=== PATIENT | female | born 1980 | race African-American/Black ===

== ENCOUNTER 2017-04-16 16:53 | Outpatient (CLI) | payer MEDICAID, OTHER ==
[~2017-04-16] VITALS: Ht 157.5 cm; Wt 72.5 kg
[~2017-04-16 16:53] MED LIST: FER325 PO; MULT-552 PO
[2017-04-16 16:58] VITALS: Ht 157.5 cm; Wt 72.5 kg
[2017-04-16 17:03] VITALS: BP 121/69; PULSE 85; RESP 19
--- NOTE | 2017-04-16 17:39 | RADRPT ---
PROCEDURE: Obstetrical ultrasound for biophysical profile CLINICAL INDICATION: Biophysical profile. . TECHNIQUE: Obstetrical ultrasound of the uterus for biophysical profile. Transabdominal views are obtained. COMPARISON: 07/01/2014 FINDINGS: Single intrauterine gestation. Presentation: Cephalic. Placenta: Anterior. No evidence of placental abruption. No evidence of placenta previa. breathing movement = 2/2 tone = 2/2 motion = 2/2 SHAYNE = 2/2 SHAYNE = 8.6cm on individual images, computed total on the ultrasound machine is incorrect and shows 5. 2 cm. heart rate: 161 beats per minute IMPRESSION: Single intrauterine gestation. Biophysical profile 02/28 RPTAT: AADD .Gurdeep Smith MD, MD Date Time Electronically viewed and signed by .Gurdeep Smith MD, on 04/16/2017 17:39 .B/
[2017-04-16] MEDS ORDERED: TERBUTALINE 1 MG/ML INJ SC ONE (20:00)
[2017-04-16] MEDS ORDERED: TERBUTALINE 1 MG/ML INJ SC PRN (20:30)
--- NOTE | 2017-04-16 21:48 | PN ---
Triage Information Date/Time Apr 16, 2017 Reason for visit: Oligohydramnios Weeks of Gestation 38w 2d /Para 2/1 Diabetes: none Hypertention: none Additional information Previous , scheduled for a repeat 04/21 at 0730. PMHx: none. PSHx: C/S x 1 only. NKDA. Objective Vital Signs Date Time Temp Pulse Resp B/P Pulse Ox O2 Delivery O2 Flow Rate FiO2 04/16/17 17:03 98.4 85 19 121/69 99 Heart Rate: 130's Heart Rate Comments Accels to 160 bpm. No decels. Contractions: 6-10 Minutes Apart Exam Closed/thick/high. Results/Medications Medications Current Medications Terbutaline Sulfate (Brethine) 0.25 mg ONCE PRN SC IF CONTRACTIONS PERSISTS Last administered on 04/16/17t 20:33; Admin Dose 0.25 MG; Start 04/16/17 at 20: 30; Stop 04/16/17 at 23:45 Imaging Results BPP 8/8 with a SHAYNE 8.6 cm. VTX. Disposition: Discharge Assessment/Plan A: IUP at 38w 2d. Previous for a scheduled repeat. Decreased movement. False labor. P: Gave pt p.o. hydration and 2 doses of terbutaline and the contractions easily stopped. The pt did not want to have her today as her mother is coming in 4 days and she has no one to watch her other child if she has the baby now. Labor precautions reviewed. BRUCE LOOMIS MD Apr 16, 2017 21:48
--- NOTE | 2017-04-16 23:16 | TRIAGE ---
OB Triage Datetime Report Generated by CPN: 04/16/2017 23:16 Datetime: 04/16/2017 21:35 Stage of : OB Triage Maternal Assessment Level of Consciousness: Fully Conscious Labor Evaluation Frequency: X3 Monitor Mode: External Duration (sec)2399: 50-70 Quality: Mild Pattern: Normal: <= 5 Contractions in 10 Minutes Resting Tone Gays: Relaxed Heart Rate FHR Baseline Rate: 135 Monitor Mode: External US Variability: Moderate 6-25 bpm Accelerations: 15X15 Decelerations: None Category: Category I Pain Presence: None/Denies Pain Goal: 3 Membrane Status: Intact Datetime: 04/16/2017 21:00 Stage of : OB Triage Maternal Assessment Level of Consciousness: Fully Conscious Labor Evaluation Frequency: IRREG Monitor Mode: External Duration (sec)2399: 50-70 Quality: Mild Pattern: Normal: <= 5 Contractions in 10 Minutes Resting Tone Gays: Relaxed Heart Rate FHR Baseline Rate: 135 Monitor Mode: External US Variability: Moderate 6-25 bpm Accelerations: 15X15 Decelerations: None Category: Category I Pain Presence: None/Denies Pain Goal: 3 Membrane Status: Intact Datetime: 04/16/2017 20:31 Stage of : OB Triage Datetime: 04/16/2017 20:00 Stage of : OB Triage Maternal Assessment Level of Consciousness: Fully Conscious Labor Evaluation Frequency: 2-6 Monitor Mode: External Duration (sec)2399: 50-60 Quality: Mild Pattern: Normal: <= 5 Contractions in 10 Minutes Resting Tone Gays: Relaxed Heart Rate FHR Baseline Rate: 135 Monitor Mode: External US Variability: Moderate 6-25 bpm Accelerations: 15X15 Decelerations: None Category: Category I Pain Assessment Pain Scale: 1 Pain Presence: Intermittent Pain Type: Cramping Pain Location: Abdomen Pain Goal: 3 Pain Relief Measures: Comfort Measures Membrane Status: Intact Datetime: 04/16/2017 19:32 Vaginal Exam Dilatation (cms): 0.0 Effacement (%): 0 Station: -3 Exam By: SKY Vaginal Bleeding: None Cervix, Consistency: Moderate Cervix, Position: Posterior Datetime: 04/16/2017 19:00 Stage of : OB Triage Maternal Assessment Level of Consciousness: Fully Conscious DTR's/Clonus: DTRs 1+ Headache: Denies Breath Sounds, Left: Clear and Equal Breath Sounds, Right: Clear and Equal Nausea/Vomiting: Denies RUQ Epigastric Pain: Denies Labor Evaluation Frequency: 2-6 Monitor Mode: External Duration (sec)2399: 50-60 Quality: Mild Pattern: Normal: <= 5 Contractions in 10 Minutes Resting Tone Gays: Relaxed Heart Rate FHR Baseline Rate: 150 Monitor Mode: External US Variability: Moderate 6-25 bpm Accelerations: 15X15 Decelerations: None Category: Category I Pain Assessment Pain Scale: 0 Pain Presence: None/Denies Pain Type: N/A Pain Goal: 3 Membrane Status: Intact Datetime: 04/16/2017 18:00 Maternal Assessment Level of Consciousness: Fully Conscious DTR's/Clonus: DTRs 1+ Headache: Denies Breath Sounds, Left: Clear and Equal Breath Sounds, Right: Clear and Equal Nausea/Vomiting: Denies RUQ Epigastric Pain: Denies Labor Evaluation Frequency: OCC Monitor Mode: External Duration (sec)2399: 50-60 Quality: Mild Pattern: Normal: <= 5 Contractions in 10 Minutes Resting Tone Gays: Relaxed Heart Rate FHR Baseline Rate: 150 Monitor Mode: External US Variability: Moderate 6-25 bpm Accelerations: 15X15 Decelerations: None Category: Category I Pain Assessment Pain Scale: 0 Pain Presence: None/Denies Pain Type: N/A Pain Goal: 3 Membrane Status: Intact Datetime: 04/16/2017 17:19 Maternal Assessment Level of Consciousness: Fully Conscious DTR's/Clonus: DTRs 1+ Headache: Denies Blurred Vision: No Respiratory Effort: Unlabored Breath Sounds, Left: Clear and Equal Breath Sounds, Right: Clear and Equal Nausea/Vomiting: Denies RUQ Epigastric Pain: Denies Facial Edema: None Labor Evaluation Frequency: X3 Monitor Mode: External Duration (sec)2399: 50-60 Quality: Mild Pattern: Normal: <= 5 Contractions in 10 Minutes Resting Tone Gays: Relaxed Heart Rate FHR Baseline Rate: 150 Monitor Mode: External US Variability: Moderate 6-25 bpm Accelerations: 15X15 Decelerations: None Category: Category I Pain Assessment Pain Scale: 0 Pain Presence: None/Denies Pain Type: N/A Pain Goal: 3 Membrane Status: Intact Datetime: 04/16/2017 17:01 Monitor Mode: External US Datetime: 04/16/2017 16:58 Assessment Type: Triage Maternal Assessment Level of Consciousness: Fully Conscious DTR's/Clonus: DTRs 2+; No Clonus Headache: Denies Blurred Vision: No Respiratory Effort: Unlabored; Regular Rhythm; Equal Expansion Breath Sounds, Left: Clear and Equal Breath Sounds, Right: Clear and Equal Nausea/Vomiting: Denies RUQ Epigastric Pain: Denies Lower Extremities Edema: None Degree: None Upper Extremities Edema: None Degree: None Facial Edema: None Fall Risk Assessment History of Falling: (0) No Secondary Diagnosis: (0) No Ambulatory Aid: (0) Bedrest/Nurse Assist IV Therapy: (0) No Gait: (0) Normal/Bedrest/Immobile Mental Status: (0) Oriented to Own Ability Fall Score: 0 Fall Risk Score Definition: No Risk: No action required Datetime: 04/16/2017 16:57 EGA: 38.2 Datetime: 04/16/2017 16:42 Time of Arrival: 04/16/2017 16:42 Arrived By: Ambulatory Arrived From: Home Chief Complaint: PT CAME IN FROM [facility] OFFICE TO DO NST AND BPP FOR DFM Movement: Present Contractions: Denies/Absent Rupture of Membranes: Denies Vaginal Discharge: Denies Recent Sexual Intercouse: Denies Abdominal Trauma: Not Applicable Additional Patient Complaints: NONE Provider Notified: EBONIE Initial Plan: NST AND BPP
--- NOTE | 2017-04-17 22:24 | PREOPHP ---
DATE OF ADMISSION: 04/16/2017 This patient is coming on for a repeat section. HISTORY OF PRESENT ILLNESS: This is a 36-year-old female, 2, para 1, with an EDC of 04/28/2017. This patient is coming for a repeat section. She had a previous section in 2014, and she had care with ut in the office since 30 weeks of her . Release of records from other office was obtained. She was diagnosed with GBS- positive. Otherwise, the patient had no other complications, except for mild anemia. There was a question about the fetus having a need for a echocardiogram, due to a possibility of ductus arteriosus being patent, due to an ultrasound done by perinatologist. Otherwise, everything else was normal. The baby was a normal-size male. The factors of looking at that area of the heart was a little bit difficult with the ultrasound, and the sustainability specialist advised to have the echocardiogram done after . The patient had the rest of the care at [facility], which was without any complications. She had all her care without complications since early , and her EDC was April 28. FAMILY HISTORY: Unremarkable, with no pertinent findings. ALLERGIES: SHE IS NOT ALLERGIC TO ANY MEDICATION. PHYSICAL EXAMINATION: VITAL SIGNS: The patient weighed 154 at the beginning of the . The blood pressure is 100/80. She is actually 159 pounds. HEAD AND NECK: Normal. CHEST: Clear. HEART: Normal sinus rhythm. LUNGS: Clear. BREASTS: Soft, nontender no masses. ABDOMEN: Soft. Uterus at term. heart tones are normal. CERVIX: Closed, long and posterior. EXTREMITIES: Normal, with normal pulses, normal reflexes, no edema. DIAGNOSES: 1. Term . 2. Previous section. PLAN: She is undergoing a repeat low-segment transverse section. Dictated By: Misty Haines MD /jose/lorene /Document#: [id number]
== END 2017-04-16 21:45 | disposition home or self-care (01) ==
LOC: L-D 16:53 → OBT 16:53
PROVIDERS: ATTEND Obstetrics & Gynecology
DX: O36.8130 Decreased fetal movements, third trimester, not applicable or unspecified (principal); O47.1 False labor at or after 37 completed weeks of gestation; Z3A.38 38 weeks gestation of pregnancy
CPT/HCPCS: 76818; 96372; G0463; J3105

== ENCOUNTER 2017-04-21 05:24 | Inpatient (IN) | payer OTHER ==
--- NOTE | 2017-04-17 22:24 | PREOPHP ---
DATE OF ADMISSION: 04/16/2017 This patient is coming on for a repeat section. HISTORY OF PRESENT ILLNESS: This is a 36-year-old female, 2, para 1, with an EDC of 04/28/2017. This patient is coming for a repeat section. She had a previous section in 2014, and she had care with ct in the office since 30 weeks of her . Release of records from other office was obtained. She was diagnosed with GBS- positive. Otherwise, the patient had no other complications, except for mild anemia. There was a question about the fetus having a need for a echocardiogram, due to a possibility of ductus arteriosus being patent, due to an ultrasound done by perinatologist. Otherwise, everything else was normal. The baby was a normal-size male. The factors of looking at that area of the heart was a little bit difficult with the ultrasound, and the shop teacher advised to have the echocardiogram done after . The patient had the rest of the care at [facility], which was without any complications. She had all her care without complications since early , and her EDC was April 28. FAMILY HISTORY: Unremarkable, with no pertinent findings. ALLERGIES: SHE IS NOT ALLERGIC TO ANY MEDICATION. PHYSICAL EXAMINATION: VITAL SIGNS: The patient weighed 154 at the beginning of the . The blood pressure is 100/80. She is actually 159 pounds. HEAD AND NECK: Normal. CHEST: Clear. HEART: Normal sinus rhythm. LUNGS: Clear. BREASTS: Soft, nontender no masses. ABDOMEN: Soft. Uterus at term. heart tones are normal. CERVIX: Closed, long and posterior. EXTREMITIES: Normal, with normal pulses, normal reflexes, no edema. DIAGNOSES: 1. Term . 2. Previous section. PLAN: She is undergoing a repeat low-segment transverse section. Dictated By: Misty Haines MD /jose/lorene /Document#: [id number]
[~2017-04-21] VITALS: Ht 157.5 cm; Wt 72.3 kg
[2017-04-21 05:50] VITALS: Ht 157.5 cm; Wt 72.3 kg
[2017-04-21 05:53] VITALS: BP 120/76; PULSE 70; RESP 18
[2017-04-21] MEDS ORDERED: METHYLERGONOVINE 0.2 MG INJ IM PRN ×2 (06:00→10:00)
[2017-04-21] MEDS ORDERED: OXYTOCIN 30 UNITS/LR 500 ML IV PRN ×2 (06:00→10:00)
[2017-04-21] MEDS ORDERED: CARBOPROST 250 MCG INJ IM PRN ×2 (06:00→10:00)
[2017-04-21] MEDS ORDERED: MISOPROSTOL 200 MCG TAB PR PRN ×2 (06:00→10:00)
[2017-04-21] MEDS ORDERED: CEFAZOLIN 2 GM/50 ML (PMX) 50 ML IV SCH (06:00)
[2017-04-21 06:36] LABS: ABNORMAL IP MESSAGE 1; BASOPHILS % 0.1 % (0.0-2.0); EOSINOPHILS # 0.1 10^3/ul (0.0-0.5); EOSINOPHILS % 0.9 % (0.0-7.0); HEMATOCRIT 35.9 % (37.0-47.0); HEMOGLOBIN 11.5 g/dl (12.0-16.0); MEAN CORPUSCULAR VOLUME 71.9 fl (82.0-101.0); MEAN PLATELET VOLUME 12.6 fl (7.4-10.4); MONOCYTE # 0.6 10^3/ul (0.3-0.9); MONOCYTES % 9.2 % (0.0-11.0); NEUTROPHIL # 4.1 10^3/ul (1.6-7.5); NEUTROPHILS % 60.2 % (39.0-77.0); PLATELET COUNT 136 10^3/UL (140-415); RED BLOOD COUNT 4.99 10^6/ul (4.20-5.40); WHITE BLOOD COUNT 6.8 10^3/ul (4.8-10.8)
[2017-04-21 06:39] LABS: POSITIVE DIFF @See below
[2017-04-21 06:51] LABS: INR 0.99; PARTIAL THROMBOPLASTIN TIME 27.8 Sec (25.0-35.0); PROTIME 13.1 Sec (12.2-14.2)
[2017-04-21] MEDS ORDERED: OXYTOCIN 30 UNITS/LR 500 ML BAG IV ONE (07:00)
[2017-04-21] MEDS: LACTATED RINGER'S 1,000 ML IV SCH ×5 (07:44→21:54)
[2017-04-21] MEDS ORDERED: morphine SULFATE/PF (10 MG/10 ML) INJ ONE (08:11)
[2017-04-21] MEDS ORDERED: ONDANSETRON 4 MG INJ ONE (08:11)
[2017-04-21] MEDS ORDERED: PHENYLephrine (100 MCG/ML) 5ML SYG ONE (08:12)
[2017-04-21] MEDS ORDERED: OXYTOCIN 10 UNIT INJ ONE (08:12)
[2017-04-21] MEDS ORDERED: FENTAnyl 50 MCG/ML VIAL ONE (08:44)
[2017-04-21] MEDS ORDERED: METHYLERGONOVINE 0.2 MG TAB PO PRN (10:00)
[2017-04-21] MEDS ORDERED: KETOROLAC 30 MG INJ IV PRN (10:00)
[2017-04-21] MEDS ORDERED: DIPHENHYDRAMINE 50 MG INJ IV PRN (10:00)
[2017-04-21] MEDS ORDERED: ONDANSETRON 4 MG INJ IV PRN (10:00)
[2017-04-21] MEDS ORDERED: NALOXONE (0.4 MG/ML) INJ IV PRN (10:00)
[2017-04-21] MEDS ORDERED: LANOLIN 7 GM TUBE TOP PRN (10:00)
[2017-04-21] MEDS ORDERED: morphine 2 MG INJ IV PRN (10:00)
[2017-04-21] MEDS ORDERED: NA PHOSPHATE/BIPHOS 133 ML ENEMA PR PRN (10:00)
[2017-04-21] MEDS: OXYTOCIN 30 UNITS/LR 500 ML IV SCH ×3 (10:42→17:08)
[2017-04-21] MEDS: KETOROLAC 30 MG INJ IV SCH ×3 (10:59→23:44)
--- NOTE | 2017-04-21 11:13 | SIPON ---
Date/Time of Note Date/Time of Note DATE: 04/21/17 TIME: 11:11 Operative Report Preoperative Diagnosis Term and previous section Postoperative Diagnosis Same plus baby boy 9 Fibroid uterus Operation/Procedure Performed Primary low segment transverse section Surgeon see signature line certified nursing assistant DR TA Anesthesia: spinal Estimated blood loss: other Transfusion Required none Specimen Placenta Grafts/Implants none Complications none NATA CORCORAN MD Apr 21, 2017 11:13
--- NOTE | 2017-04-21 12:04 | OPR ---
DATE OF OPERATION: 04/21/2017 OPERATION PERFORMED: Repeat low segment transverse section. PREOPERATIVE DIAGNOSIS: Term . Previous section. POSTOPERATIVE DIAGNOSES: 1. Term . Previous section. 2. Fibroid uterus. 3. Baby boy, 9. SURGEON: Dr. Haines. CHRISTMAS BELL RINGER: Cortez Garcia MD ANESTHESIA: Spinal ANESTHESIOLOGIST: George Huff MD DESCRIPTION OF PROCEDURE:: The patient was given spinal anesthesia, placed in the supine position, and a Pinzon catheter was placed in the bladder. An elliptical incision was made around the previous old scar and the scar was removed. The uterus was opened in the midline after entering the abdomen. This incision was increased laterally on either side for about three inches. The Jose retractor was used and the baby's head was delivered followed by the body. It was a baby boy, 9. The cord was clamped and cut, and the baby was handed over to the snapper on team. The cervix was opened with a ring forceps. The cord blood was obtained. The placenta was removed. The uterus was swabbed out and the uterus was closed in two layers using number 1 Monocryl in continuous suture embedding the first line of suture and interrupted sutures with 0 Vicryl and 0 chromic were used for control of hemostasis. The uterus appears to have a small fibroids. The tubes and ovaries were normal. The abdominal cavity was cleaned out. There were some omental adhesions that were lysed. A piece of Interceed was placed on the incisional area after cleaning the cavity. The sponge counts and instrument counts were correct. The abdomen was closed with a 2-0 Vicryl suture for peritoneum, PDS loop suture 0 to the fascia, 2-0 Vicryl for the subcutaneous tissue, 3-0 Monocryl, subcuticular to the skin. Steri-Strips and Dermabond were used. The patient tolerated the procedure well and left the OR awake and stable. Sponge counts and instrument counts were correct. Intravenous antibiotics were given for prophylaxis. Dictated By: Misty Haines MD /jose/bruce /Document#: [id number]
[2017-04-21] MEDS ORDERED: CEFAZOLIN 2 GM/50 ML (PMX) 50 ML IVPB SCH (14:00)
[2017-04-21 15:00] VITALS: BP 122/59; PULSE 81; RESP 19
[2017-04-21 15:30] VITALS: BP 139/71; PULSE 90; RESP 18
[2017-04-21] MEDS: CEFAZOLIN 2 GM/50 ML (PMX) 50 ML IVPB SCH (17:08)
[2017-04-21 19:45] VITALS: BP 130/80; PULSE 86; RESP 18
[2017-04-21] MEDS: SENNA/DOCUSATE NA (8.6MG/50MG) TAB PO SCH (21:55)
[2017-04-22] MEDS: CEFAZOLIN 2 GM/50 ML (PMX) 50 ML IVPB SCH ×2 (03:19→11:24)
[2017-04-22 03:41] VITALS: BP 106/58; PULSE 97; RESP 18
[2017-04-22] MEDS: KETOROLAC 30 MG INJ IV SCH ×3 (05:43→19:00)
[2017-04-22] MEDS: LACTATED RINGER'S 1,000 ML IV SCH ×2 (05:43→17:36)
[2017-04-22] MEDS ORDERED: HYDROCODONE/APAP (5/325) TAB PO PRN (08:05)
[2017-04-22 08:30] VITALS: BP 121/78; PULSE 96; RESP 18
[2017-04-22] MEDS ORDERED: INFLUENZA VIRUS VACCINE 0.5 ML SYG IM* ONE (09:00)
[2017-04-22 09:36] LABS: ABNORMAL IP MESSAGE 1; BASOPHILS % 0.2 % (0.0-2.0); EOSINOPHILS # 0.1 10^3/ul (0.0-0.5); EOSINOPHILS % 0.5 % (0.0-7.0); HEMATOCRIT 32.4 % (37.0-47.0); HEMOGLOBIN 10.3 g/dl (12.0-16.0); LYMPHOCYTES # 1.2 10^3/ul (0.8-2.9); LYMPHOCYTES % 11.5 % (15.0-51.0); MEAN CORPUSCULAR HEMOGLOBIN 22.9 pg (29.0-33.0); MEAN CORPUSCULAR HGB CONC 31.8 g/dl (32.0-37.0); MEAN PLATELET VOLUME 12.7 fl (7.4-10.4); MONOCYTE # 0.8 10^3/ul (0.3-0.9); MONOCYTES % 7.5 % (0.0-11.0); NEUTROPHILS % 79.9 % (39.0-77.0); PLATELET COUNT 143 10^3/UL (140-415); RED CELL DISTRIBUTION WIDTH 15.7 % (11.5-14.5)
[2017-04-22 09:46] LABS: POSITIVE DIFF @See below
[2017-04-22] MEDS: SENNA/DOCUSATE NA (8.6MG/50MG) TAB PO SCH ×2 (10:22→21:26)
[2017-04-22 16:00] VITALS: BP 136/82; PULSE 97; RESP 17
[2017-04-22 20:30] VITALS: BP 117/69; PULSE 100; RESP 18
--- NOTE | 2017-04-22 20:48 | PN ---
Date/Time of Note Date/Time of Note DATE: 04/22/17 TIME: 20:47 OB Subjective Subjective Subjective April 22, 2070 Post C section day 1 Doing Well Afebrile Ambulatory Chest Clear Breasts are soft , Nipples are intact Abdomen is soft Fundus is firm Moderate amount of lochia Incision is clean ,No evidence of infection No calf tenderness Laboratory Tests Test 04/22/17 08:47 White Blood Count 10.010^3/ul Red Blood Count 4.5010^6/ul Hemoglobin 10.3g/dl Hematocrit 32.4% Mean Corpuscular Volume 72.0fl Mean Corpuscular Hemoglobin 22.9pg Mean Corpuscular Hemoglobin Concent 31.8g/dl Red Cell Distribution Width 15.7% Platelet Count 20295^3/UL Mean Platelet Volume 12.7fl Neutrophils % 79.9% Lymphocytes % 11.5% Monocytes % 7.5% Eosinophils % 0.5% Basophils % 0.2% Nucleated Red Blood Cells % 0.0/100WBC Neutrophils # 8.010^3/ul Lymphocytes # 1.210^3/ul Monocytes # 0.810^3/ul Eosinophils # 0.110^3/ul Basophils # 0.010^3/ul Nucleated Red Blood Cells # 0.010^3/ul Current Medications Medications (Trade) Dose Ordered Sig/Mac Route PRN Reason Start Time Stop Time Status Last Admin Dose Admin Lactated Ringer's 1,000 ml @ 125 mls/hr Q8H IV 04/21/17 05:48 04/21/17 09:42 DC 04/21/17 07:45 Cefazolin Sodium/ Dextrose 50 ml @ 100 mls/hr ONCE IV 04/21/17 06:00 04/21/17 09:42 DC Oxytocin/Lactated Ringer's 500 ml @ 0 mls/hr ONCE PRN IV For Hemorrhage Management 04/21/17 06:00 04/21/17 09:43 DC Methylergonovine Maleate (Methergine) 0.2 mg ONCE PRN IM VAGINAL BLEEDING 04/21/17 06:00 04/21/17 09:43 DC Carboprost Tromethamine (Hemabate) 250 mcg ONCE PRN IM VAGINAL BLEEDING 04/21/17 06:00 04/21/17 09:43 DC Misoprostol (Cytotec) 1,000 mcg ONCE PRN IN VAGINAL BLEEDING 04/21/17 06:00 04/21/17 09:43 DC Morphine Sulfate (Duramorph) 10 mg STK-MED ONCE .ROUTE 04/21/17 08:11 04/21/17 08:12 DC Ondansetron HCl (Zofran Inj) 4 mg STK-MED ONCE .ROUTE 04/21/17 08:11 04/21/17 08:12 DC Phenylephrine HCl (Luis Manuel-Synephrine Inj Syg) 500 mcg STK-MED ONCE .ROUTE 04/21/17 08:12 04/21/17 08:13 DC Oxytocin (Oxytocin) 10 units STK-MED ONCE .ROUTE 04/21/17 08:12 04/21/17 08:13 DC Fentanyl (Sublimaze) 100 mcg STK-MED ONCE .ROUTE 04/21/17 08:44 04/21/17 08:45 DC Naloxone HCl (Narcan) 0.1 mg Q2M PRN IV FOR RESP RATE 8 OR LESS 04/21/17 10:00 04/22/17 08:04 DC Ketorolac Tromethamine (Toradol) 30 mg Q6H PRN IV PAIN 04/21/17 10:00 04/22/17 08:04 DC Morphine Sulfate (morphine) 2 mg Q3H PRN IV PAIN LEVEL 1-5 04/21/17 10:00 04/22/17 08:04 DC Diphenhydramine HCl (Benadryl) 25 mg Q6H PRN IV ITCHING 04/21/17 10:00 04/22/17 08:04 DC Ondansetron HCl (Zofran Inj) 4 mg Q6H PRN IV NAUSEA AND/OR VOMITING 04/21/17 10:00 04/22/17 08:04 DC Miscellaneous Information Duramorph: 0.2 mg Spi... GIVEN XX 04/21/17 10:00 04/22/17 08:04 DC Lactated Ringer's 1,000 ml @ 125 mls/hr Q8H IV 04/21/17 09:36 04/22/17 05:43 Cefazolin Sodium/ Dextrose 50 ml @ 100 mls/hr Q8H IVPB 04/21/17 14:00 04/21/17 15:10 DC Oxytocin/Lactated Ringer's 500 ml @ 125 mls/hr Q4H IV 04/21/17 09:36 04/21/17 17:35 DC 04/21/17 17:08 Methylergonovine Maleate (Methergine) 0.2 mg Q6H PRN PO VAGINAL BLEEDING 04/21/17 10:00 Acetaminophen/ Hydrocodone Bitart (Ingomar (5/325)) 1 tab Q4H PRN PO PAIN LEVEL 4-6 04/22/17 08:05 04/22/17 15:49 Acetaminophen/ Hydrocodone Bitart (Ingomar (5/325)) 2 tab Q4H PRN PO PAIN LEVEL 7-10 04/22/17 08:05 Ibuprofen (Motrin) 800 mg Q8 PO 04/22/17 14:00 Future hold Simethicone (Mylicon) 160 mg Q8H PRN PO DISTENSION/GAS/BLOATING 04/21/17 10:00 04/22/17 15:48 Senna/Docusate Sodium (Senokot-S) 1 tab BID PO 04/21/17 21:00 04/22/17 10:22 Sodium Biphosphate/ Sodium Phosphate (Fleet Enema) 133 ml DAILY PRN IN CONSTIPATION 04/21/17 10:00 Lanolin (Gnm-U-Ejilnv) 1 applic BEDSIDE MEDICATION PRN TOP BEDSIDE FOR [place] TO NIPPLES 04/21/17 10:00 04/22/17 15:48 Diphtheria/ Tetanus/Acell Pertussis (Adacel) 0.5 ml ONCE ONCE IM* 04/24/17 09:00 04/24/17 09:01 Measles/Mumps/ Rubella Vaccine Live 0.5 ml 0.5 ml ONCE ONCE SC* 04/24/17 09:00 04/24/17 09:01 Oxytocin/Lactated Ringer's 500 ml @ 0 mls/hr ONCE PRN IV For Hemorrhage Management 04/21/17 10:00 Methylergonovine Maleate (Methergine) 0.2 mg ONCE PRN IM VAGINAL BLEEDING 04/21/17 10:00 Carboprost Tromethamine (Hemabate) 250 mcg ONCE PRN IM VAGINAL BLEEDING 04/21/17 10:00 Misoprostol (Cytotec) 1,000 mcg ONCE PRN IN VAGINAL BLEEDING 04/21/17 10:00 Ketorolac Tromethamine 30 mg 30 mg Q6H IV 04/21/17 10:00 04/23/17 04:01 04/22/17 19:00 Cefazolin Sodium/ Dextrose (Ancef 2 Gm/50 ml (Pmx)) 50 ml @ 100 mls/hr Q8H IVPB 04/21/17 18:00 04/22/17 10:29 DC 04/22/17 11:24 Influenza Virus Vaccine (Fluzone) 0.5 ml ONCE ONCE IM* 04/22/17 09:00 04/22/17 09:01 DC 04/22/17 11:25 No ankle edema New born is doing well, Breast feeding SRAVANTHI GÓMEZ MD Apr 22, 2017 20:48
--- NOTE | 2017-04-22 22:32 | PN ---
Date/Time of Note Date/Time of Note DATE: 04/22/17 TIME: 22:29 OB Subjective Subjective Subjective no c/o OB Objective Objective Objective vss afebrile abdomen soft wound dry lochia min calf neg for tenderness OB Assessment/Plan Other Assessment: stable Post c/s #1 Other plan: as ordered JOSHUA SIMON MD Apr 22, 2017 22:32
[2017-04-23] MEDS: KETOROLAC 30 MG INJ IV SCH (00:38)
[2017-04-23] MEDS: LACTATED RINGER'S 1,000 ML IV SCH ×2 (01:29→09:36)
[2017-04-23 04:00] VITALS: BP 120/71; PULSE 120; RESP 18
[2017-04-23] MEDS ORDERED: KETOROLAC 30 MG INJ IV SCH (06:00)
[2017-04-23] MEDS: IBUPROFEN 800 MG TAB PO SCH ×3 (06:00→22:15)
[2017-04-23 08:50] VITALS: BP 126/78; PULSE 89; RESP 18
[2017-04-23] MEDS: HYDROCODONE/APAP (5/325) TAB PO PRN ×3 (09:07→23:37)
[2017-04-23] MEDS: SENNA/DOCUSATE NA (8.6MG/50MG) TAB PO SCH ×2 (09:07→21:02)
--- NOTE | 2017-04-23 15:06 | PN ---
Date/Time of Note Date/Time of Note DATE: 04/23/17 TIME: 15:00 OB Subjective Subjective Subjective doing fine no c/o passing flatus OB Objective Objective Objective vss afebrile abdomen soft wound dry lochia min calf neg for tenderness OB Assessment/Plan Other Assessment: stable post rc/s #2 Other plan: circumcision in am by her OB( RN will inform her in am) JOSHUA SIMON MD Apr 23, 2017 15:05
[2017-04-23 16:00] VITALS: BP 125/79; PULSE 87; RESP 16
[2017-04-23 20:30] VITALS: BP 142/82; PULSE 90; RESP 18
[2017-04-24 04:00] VITALS: BP 130/92; PULSE 67; RESP 17
[2017-04-24] MEDS: IBUPROFEN 800 MG TAB PO SCH ×2 (05:31→14:51)
[2017-04-24 07:50] VITALS: BP 131/87; PULSE 76; RESP 17
[2017-04-24] MEDS ORDERED: MEASLES,MUMPS,RUBELLA VACCINE INJ SC* ONE (09:00)
[2017-04-24] MEDS ORDERED: DIPHTH/TET/ACEL PERTUSS (ADULT) 0.5 ML VIAL IM* ONE (09:00)
[2017-04-24] MEDS: SENNA/DOCUSATE NA (8.6MG/50MG) TAB PO SCH (09:34)
[2017-04-24] MEDS: HYDROCODONE/APAP (5/325) TAB PO PRN ×2 (11:45→16:27)
--- NOTE | 2017-04-24 14:28 | PD.PPDC ---
BAILIFF Discharge Instruction Condition Patient Condition: Good Diet Diet: Resume Regular Diet Activity/Restrictions Activity: Normal Activity May Shower Restrictions: No Exercising No Lifting No Driving No Sexual Activity Nothing in the Vagina No [place] No Tampons, douche Wound/Drain Care Instructions Wound/Drain Care Instructions: Remove Steri Strips in 1 week Wash with soap and water Follow-up Follow-up with Physician: 1, Week/Weeks Return to clinic for CONDENSER TESTER Instructions: Fever greater than 101 Chills Worsening abdominal pain Excessive Vaginal Bleeding More than 2 pads per hour Unable to tolerate diet OB Instructions: Breast Tenderness Depression Blurried Vision Headache Surgical Instructions: Incisional Drainage Incisional Redness NATA CORCORAN MD Apr 24, 2017 14:28
--- NOTE | 2017-04-25 08:00 | DS ---
DATE OF ADMISSION: 04/21/2017 DATE OF DISCHARGE: 04/24/2017 PREOPERATIVE DIAGNOSES: 1. Term . 2. Previous section. POSTOPERATIVE DIAGNOSES: 1. Term . 2. Previous section. FINAL DIAGNOSES: 1. Term . 2. Previous section. PROCEDURE: Repeat low segment transverse section. COMPLICATIONS: None. HISTORY OF PRESENT ILLNESS: This is a 36-year-old female 2, para 1 with an EDC of 04/28/2017. The patient was coming for a repeat section. She had a previous in 2014. HOSPITAL COURSE: She was diagnosed with GBS positivity, for which she was treated and repeat section was performed. The patient underwent the procedure without complication and she was discharged home on her 3rd postoperative day with a bowel movement, with a clean incision, afebrile, tolerating diet, ambulatory, and with a near normal hematocrit, hemoglobin, and white cell count. The patient is adamant to go home. She is ambulating and she feels good, and the incision looks good so she is being sent home on [place] and ibuprofen. She was discharged stable and in good condition, and with further instructions of how to take care of herself. The patient is having a normal lochia, she is not bleeding much, and she is happy to go home on her p.o. medications. FOLLOWUP: She is discharged to see me in the office in a week or earlier if she has any problems. Further instructions were given of what to do and not to do at home and how to clean her incision and so on. Dictated By: Misty Haines MD /jose/brooklyn /Document#: [id number]
== END 2017-04-24 17:45 | disposition home or self-care (01) | DRG 766 ==
LOC: L-D 05:24 → PP1 14:32
PROVIDERS: ADMIT Obstetrics & Gynecology; ATTEND Obstetrics & Gynecology
PROC: 10D00Z1 Extraction of Products of Conception, Low, Open Approach (ICD-10-PCS; principal; 2017-04-21 07:30)
PROC: 3E0234Z Introduction of Serum, Toxoid and Vaccine into Muscle, Percutaneous Approach (ICD-10-PCS; 2017-04-22)
PROC: 3E0234Z Introduction of Serum, Toxoid and Vaccine into Muscle, Percutaneous Approach (ICD-10-PCS; 2017-04-24)
DX: O34.211 Maternal care for low transverse scar from previous cesarean delivery (principal); D25.9 Leiomyoma of uterus, unspecified; Z37.0 Single live birth; O99.02 Anemia complicating childbirth; O99.824 Streptococcus B carrier state complicating childbirth; Z3A.39 39 weeks gestation of pregnancy; Z23 Encounter for immunization; O34.13 Maternal care for benign tumor of corpus uteri, third trimester
CPT/HCPCS: 85025; 85610; 85730; 86592; 86850; 86900; 86901; 87340; 90686; 90715; 94760; 99464; J0690; J1885; J2274; J2370; J2405; J2590; J3010; J7120